=== PATIENT | female | born 1980 | race Two or more races ===

== ENCOUNTER 2023-08-26 12:22 | Emergency (ER) | payer BC, OTHER ==
[~2023-08-26] VITALS: Ht 154.9 cm; Wt 72.6 kg
[2023-08-26] MEDS ORDERED: GUAIFENESIN/CODEINE 5 ML LIQUID UDC ONE (12:46)
[2023-08-26] MEDS ORDERED: GUAI5SYR4 PO (12:48)
[2023-08-26] MEDS: GUAIFENESIN/CODEINE 5 ML LIQUID UDC PO ONE (12:50)
[2023-08-26] MEDS ORDERED: ALBU18HF2 INH (12:50)
[2023-08-26] MEDS ORDERED: BENZONATATE 100 MG CAPSULE ONE (12:53)
[2023-08-26] MEDS: BENZONATATE 100 MG CAPSULE PO ONE (12:55)
[2023-08-26 13:02] VITALS: BP 125/71; TEMP 97.6; O2SAT 98
== END 2023-08-26 13:03 | disposition home or self-care (01) ==
LOC: ER 12:30
DX: J20.9 Acute bronchitis, unspecified (principal); B97.89 Other viral agents as the cause of diseases classified elsewhere
CPT/HCPCS: A4606; A4663